=== PATIENT | female | born 1950 | race Asian ===

== ENCOUNTER 2025-04-29 16:26 | Inpatient (IN) | payer MEDICARE, OTHER ==
[~2025-04-29] VITALS: Ht 172.7 cm; Wt 66.2 kg
[2025-04-29 17:25] LABS: PLATELET COUNT (AUTO) 131 K/uL (150-450); RED BLOOD CELL COUNT(AUTO) 3.91 MIL/uL (4.0-5.2); RED CELL DISTRIBUTION WIDTH 13.6 % (11.5-15.0); WHITE BLOOD COUNT (AUTO) 6.0 K/uL (4.3-11.0)
[2025-04-29 17:34] LABS: CALCIUM, SERUM 8.9 mg/dL (8.5-10.1); CREATININE 1.1 mg/dL (0.6-1.3); SODIUM SERUM 140 mmol/L (136-145); UREA NITROGEN, BLOOD 24 mg/dL (7-18)
[2025-04-29] MEDS ORDERED: LEVE500T20 PO (17:39)
[2025-04-29] MEDS ORDERED: CALC500T13 PO (17:39)
[2025-04-29] MEDS ORDERED: NA P133E RC (17:39)
[2025-04-29] MEDS ORDERED: GUAI100S34 PO (17:39)
[2025-04-29] MEDS ORDERED: CHOL200026 PO (17:39)
[2025-04-29] MEDS ORDERED: METO25TA4 PO (17:39)
[2025-04-29] MEDS ORDERED: LOSA100T31 PO (17:39)
[2025-04-29] MEDS ORDERED: PANT40TA49 PO (17:39)
[2025-04-29] MEDS ORDERED: HYDR25TA4 PO (17:39)
[2025-04-29] MEDS ORDERED: OMEG1CAP55 PO (17:39)
[2025-04-29] MEDS ORDERED: ONDA4TAB5 PO (17:39)
[2025-04-29] MEDS ORDERED: INSU100V3 SQ (17:39)
[2025-04-29] MEDS ORDERED: DOXY100T2 PO (17:39)
[2025-04-29] MEDS ORDERED: AMLO5TAB4 PO (17:39)
[2025-04-29] MEDS ORDERED: MELA5TAB PO (17:39)
[2025-04-29] MEDS ORDERED: SIME80TA15 PO (17:39)
[2025-04-29] MEDS ORDERED: ATOR10TA PO (17:39)
[2025-04-29] MEDS ORDERED: ASPI-1169 PO (17:39)
[2025-04-29 17:41] LABS: ASPARTATE AMINOTRANSFERASE 32 U/L (15-37); TOTAL PROTEIN, SERUM 6.4 g/dL (6.4-8.2)
[2025-04-29 17:47] LABS: APPEARANCE,URINE CLEAR (CLEAR); BLOOD, URINE Small Ery/uL (NEGATIVE); LEUKOCYTE ESTERASE ,URINE Trace (NEGATIVE); UGLUCOSE Negative (NEGATIVE)
[2025-04-29 17:49] LABS: NITRITE, URINE NEGATIVE (NEGATIVE)
[2025-04-29 17:50] LABS: ADD URINE CULTURE NO; SQUAMOUS EPITHELIAL CELL,UR Few /HPF (None Seen)
[2025-04-29 18:00] LABS: AMPHETAMINE, URINE NEGATIVE (NEGATIVE); BARBITURATE, URINE NEGATIVE (NEGATIVE); BENZODIAZEPINE, URINE NEGATIVE (NEGATIVE); CANNABINOID, URINE NEGATIVE (NEGATIVE); COCCAINE, URINE NEGATIVE (NEGATIVE); OPIATE, URINE NEGATIVE (NEGATIVE)
[2025-04-29 18:13] LABS: ALCOHOL, BLOOD < 3 mg/dL (0-10)
[2025-04-30] MEDS ORDERED: ZOLPIDEM TARTRATE 5 MG TABLET PO PRN ×2 (01:30)
[2025-04-30] MEDS ORDERED: MAG HYDROX/AL HYDROX/SIMETH 30 ML UDC PO PRN (01:30)
[2025-04-30] MEDS ORDERED: ACETAMINOPHEN 325 MG TABLET PO PRN (01:30)
[2025-04-30] MEDS ORDERED: LORAZEPAM 0.5 MG TABLET PO PRN ×3 (01:30→13:30)
[2025-04-30] MEDS ORDERED: MAGNESIUM HYDROXIDE 30 ML UDC PO PRN (01:30)
[2025-04-30] MEDS: BLOOD SUGAR DIAGNOSTIC 1 EACH STRIP IN ONE (01:45)
[2025-04-30 02:21] VITALS: BP 137/95; TEMP 97.7; O2SAT 100
[2025-04-30] MEDS ORDERED: DEXTROSE 50%-WATER 50 ML DISP.SYRIN IV PRN (02:30)
[2025-04-30] MEDS ORDERED: GUAIFENESIN 300 MG/15 ML UDC PO PRN (03:00)
[2025-04-30] MEDS ORDERED: NA PHOS,M-B/NA PHOS,DI-BA 1 EA ENEMA RC PRN (03:00)
[2025-04-30] MEDS: BLOOD SUGAR DIAGNOSTIC 1 EACH STRIP IN SCH (07:03)
[2025-04-30] MEDS: PANTOPRAZOLE 40 MG TABLET.DR PO SCH (07:49)
[2025-04-30 08:00] VITALS: BP 136/89; TEMP 98.1; O2SAT 95
[2025-04-30] MEDS: CEPHALEXIN MONOHYDRATE 500 MG CAPSULE PO SCH (09:39)
[2025-04-30] MEDS: CHOLECALCIFEROL 1,000 UNIT TABLET (VIT D3) PO SCH (09:39)
[2025-04-30] MEDS: CALCIUM CARBONATE 500 MG TAB.CHEW PO PRN (09:39)
[2025-04-30] MEDS: LOSARTAN POTASSIUM 50 MG TABLET PO SCH (09:39)
[2025-04-30] MEDS: METOPROLOL SUCCINATE 25 MG TAB.SR.24H PO SCH (09:39)
[2025-04-30] MEDS: HYDROCHLOROTHIAZIDE 25 MG TABLET PO SCH (09:40)
[2025-04-30] MEDS: ASPIRIN 81 MG TAB.CHEW PO SCH (09:41)
[2025-04-30] MEDS: AMLODIPINE BESYLATE 5 MG TABLET PO SCH (09:47)
[2025-04-30] MEDS: LEVETIRACETAM (250 MG) 250 MG TABLET PO SCH (11:18)
[2025-04-30 16:00] VITALS: BP 118/69; TEMP 98.1; O2SAT 98
[2025-04-30] MEDS ORDERED: LOVAZA 1 GM PO SCH (18:00)
[2025-04-30 21:21] VITALS: BP 134/84; TEMP 98.1; O2SAT 96
[2025-04-30] MEDS: ATORVASTATIN 10 MG TABLET PO SCH (21:29)
[2025-04-30] MEDS: QUETIAPINE FUMARATE 25 MG TABLET PO SCH (21:29)
[2025-04-30] MEDS: INSULIN REGULAR, HUMAN 100 UNIT/ML 3 ML VIAL SQ PRN (21:35)
[2025-05-01 08:00] VITALS: BP 113/88; TEMP 98.6; O2SAT 98
[2025-05-01 16:00] VITALS: BP 115/68; TEMP 97.5; O2SAT 97
[2025-05-02 08:00] VITALS: BP 142/74; TEMP 98.6; O2SAT 98
[2025-05-02] MEDS: VITAMINS A AND D 56.7 GM TUBE TP SCH (09:04)
[2025-05-02 16:00] VITALS: BP 117/68; TEMP 97.5; O2SAT 99
[2025-05-02 19:44] VITALS: BP 122/58; TEMP 97.5; O2SAT 98
[2025-05-03 08:00] VITALS: BP 132/72; TEMP 98.7; O2SAT 98
[2025-05-03 16:00] VITALS: BP 100/70; TEMP 97.7; O2SAT 100
[2025-05-03] MEDS: SIMETHICONE 80 MG TAB.CHEW PO PRN (16:59)
[2025-05-03 19:52] VITALS: BP 108/61; TEMP 97.8; O2SAT 100
[2025-05-04 08:00] VITALS: BP 139/100; TEMP 98.7; O2SAT 99
[2025-05-04 16:00] VITALS: BP 99/72; TEMP 97.9; O2SAT 99
[2025-05-04 19:51] VITALS: BP 105/63; TEMP 97.7; O2SAT 99
[2025-05-05 08:00] VITALS: BP 116/61; TEMP 97.9; O2SAT 95
[2025-05-05] MEDS ORDERED: VENLAFAXINE XR 75 MG CAP.SR.24H PO SCH (10:30)
[2025-05-05] MEDS: VENLAFAXINE XR 37.5 MG CAP.SR.24H PO SCH (12:39)
[2025-05-05 16:00] VITALS: BP 105/75; TEMP 97.9; O2SAT 100
[2025-05-05 20:00] VITALS: BP 112/77; TEMP 98.1; O2SAT 100
[2025-05-06 08:00] VITALS: BP 118/78; TEMP 97.5; O2SAT 98
[2025-05-06] MEDS: ONDANSETRON 4 MG TAB.RAPDIS PO PRN (17:15)
[2025-05-06 18:18] LABS: PLATELET COUNT (AUTO) 140 K/uL (150-450); RED BLOOD CELL COUNT(AUTO) 4.66 MIL/uL (4.0-5.2); RED CELL DISTRIBUTION WIDTH 13.7 % (11.5-15.0); WHITE BLOOD COUNT (AUTO) 4.9 K/uL (4.3-11.0)
[2025-05-06 18:24] LABS: CALCIUM, SERUM 9.4 mg/dL (8.5-10.1); CREATININE 1.4 mg/dL (0.6-1.3); SODIUM SERUM 140.0 mmol/L (136-145); UREA NITROGEN, BLOOD 32.0 mg/dL (7-18)
[2025-05-06 20:48] VITALS: BP 130/83; TEMP 98.1; O2SAT 97
[2025-05-07 08:00] VITALS: BP 117/74; TEMP 98.7; O2SAT 99
[2025-05-07 08:12] LABS: CALCIUM, SERUM 9.3 mg/dL (8.5-10.1); CREATININE 1.6 mg/dL (0.6-1.3); SODIUM SERUM 142.0 mmol/L (136-145); UREA NITROGEN, BLOOD 31.0 mg/dL (7-18)
[2025-05-07 16:00] VITALS: BP 100/51; TEMP 98.7; O2SAT 99
[2025-05-07 20:00] VITALS: BP 122/74; TEMP 98.3; O2SAT 98
[2025-05-08 08:00] VITALS: BP 106/75; TEMP 97.9; O2SAT 96
[2025-05-08 08:10] VITALS: BP 106/75; TEMP 97.9; O2SAT 96
[2025-05-08 16:00] VITALS: BP 112/75; TEMP 97.7; O2SAT 100
[2025-05-08 20:12] VITALS: BP 119/77; TEMP 97.9; O2SAT 98
[2025-05-09 08:00] VITALS: BP 109/69; TEMP 97.6; O2SAT 97
[2025-05-09 16:00] VITALS: BP 112/77; TEMP 97.9; O2SAT 99
[2025-05-09] MEDS: GLUCERNA SHAKE 237 ML CAN PO SCH (17:00)
[2025-05-09] MEDS: MEGESTROL ACETATE 40 MG TABLET PO SCH (18:33)
[2025-05-09 20:00] VITALS: BP 106/70; TEMP 97.9; O2SAT 100
[2025-05-09] MEDS: QUETIAPINE FUMARATE 25 MG TABLET PO SCH (21:18)
[2025-05-10 07:36] LABS: PLATELET COUNT (AUTO) 136 K/uL (150-450); RED BLOOD CELL COUNT(AUTO) 4.26 MIL/uL (4.0-5.2); RED CELL DISTRIBUTION WIDTH 13.3 % (11.5-15.0); WHITE BLOOD COUNT (AUTO) 3.8 K/uL (4.3-11.0)
[2025-05-10 08:00] LABS: CREATINE KINASE, TOTAL 20.0 U/L (26-192)
[2025-05-10 08:14] LABS: ASPARTATE AMINOTRANSFERASE 20.0 U/L (15-37); CALCIUM, SERUM 9.3 mg/dL (8.5-10.1); CREATININE 1.5 mg/dL (0.6-1.3); PHOSPHORUS 3.7 mg/dL (2.5-4.9); SODIUM SERUM 143.0 mmol/L (136-145); TOTAL PROTEIN, SERUM 6.5 g/dL (6.4-8.2); UREA NITROGEN, BLOOD 33.0 mg/dL (7-18)
[2025-05-10 08:22] VITALS: BP 108/68; TEMP 97.8; O2SAT 100
[2025-05-10] MEDS: LEVETIRACETAM (250 MG) 250 MG TABLET PO SCH (12:00)
[2025-05-10 16:08] VITALS: BP 93/70; TEMP 97.8; O2SAT 96
[2025-05-10 21:05] VITALS: BP 105/76; TEMP 97.9; O2SAT 98
[2025-05-10] MEDS: MIRTAZAPINE 15 MG TABLET PO SCH (21:16)
[2025-05-11 06:13] LABS: PTH, INTACT 37 pg/mL (15-65)
[2025-05-11 08:00] VITALS: BP 130/67; TEMP 98.1; O2SAT 97
[2025-05-11 16:00] VITALS: BP 115/74; TEMP 97.8; O2SAT 99
[2025-05-11 16:31] LABS: CALCIUM, SERUM 9.6 mg/dL (8.5-10.1); CREATININE 1.4 mg/dL (0.6-1.3); SODIUM SERUM 137.0 mmol/L (136-145); UREA NITROGEN, BLOOD 35.0 mg/dL (7-18)
[2025-05-11] MEDS: IV D5/ 0.9% NACL 1,000 ML IV PRN (17:46)
[2025-05-11 19:48] VITALS: BP 115/93; TEMP 98.1; O2SAT 99
[2025-05-12 08:00] VITALS: BP 121/82; TEMP 97.8; O2SAT 98
[2025-05-12 16:11] VITALS: BP 131/61; TEMP 97.8; O2SAT 95
[2025-05-12] MEDS ORDERED: MAGN400O6 PO (18:27)
[2025-05-12] MEDS ORDERED: LEVE500T20 PO (18:27)
[2025-05-12] MEDS ORDERED: MAG30ORA PO (18:27)
[2025-05-12] MEDS ORDERED: MIRT7.5T10 PO (18:27)
[2025-05-12] MEDS ORDERED: ACET-868 PO (18:27)
[2025-05-12] MEDS ORDERED: NUT.237L45 PO (18:27)
[2025-05-12] MEDS ORDERED: PETR113O TP (18:27)
[2025-05-12] MEDS ORDERED: MEGE400O6 PO (18:27)
== END 2025-05-12 16:32 | DRG 885 ==
LOC: ER 16:38 → GPS 23:52
PROVIDERS: ADMIT Psychiatry & Neurology Psychiatry; ATTEND Nurse Practitioner Acute Care
DX: F39 Unspecified mood [affective] disorder (principal); N18.9 Chronic kidney disease, unspecified; N17.0 Acute kidney failure with tubular necrosis; F03.92 Unspecified dementia, unspecified severity, with psychotic disturbance; F03.93 Unspecified dementia, unspecified severity, with mood disturbance; F29 Unspecified psychosis not due to a substance or known physiological condition; Z20.822 Contact with and (suspected) exposure to COVID-19; I12.9 Hypertensive chronic kidney disease with stage 1 through stage 4 chronic kidney disease, or unspecified chronic kidney disease; L85.3 Xerosis cutis; Z87.11 Personal history of peptic ulcer disease; Z87.440 Personal history of urinary (tract) infections; E11.22 Type 2 diabetes mellitus with diabetic chronic kidney disease; Z79.4 Long term (current) use of insulin; Z79.82 Long term (current) use of aspirin; Z79.899 Other long term (current) drug therapy; G40.909 Epilepsy, unspecified, not intractable, without status epilepticus; R62.7 Adult failure to thrive; E78.5 Hyperlipidemia, unspecified; Z73.6 Limitation of activities due to disability; E86.0 Dehydration
CPT/HCPCS: 36415; 71045-TC; 76770-TC; 80048-TC; 80053-TC; 80076-TC; 81001; 82550-TC; 82962-TC; 83735-TC; 83970; 84100-TC; 84155; 84165; 84484-TC; 85025-TC; 87081-TC; 97110-TC; 97116-TC; 97530-TC; A4223; G0480; J1815; J7030; J7042; J7070; Q0162

== ENCOUNTER 2025-05-12 17:17 | Inpatient (IN) | payer MEDICARE, OTHER ==
[~2025-05-12] VITALS: Ht 162.6 cm; Wt 70.8 kg
[~2025-05-12 17:17] MED LIST: AMLO5TAB4 PO; ASPI-1169 PO; ATOR10TA PO; CALC500T13 PO; CHOL200026 PO; DOXY100T2 PO; GUAI100S34 PO; HYDR25TA4 PO; INSU100V3 SQ; LEVE500T20 PO; LOSA100T31 PO; MELA5TAB PO; METO25TA4 PO; NA P133E RC; OMEG1CAP55 PO; ONDA4TAB5 PO; PANT40TA49 PO; SIME80TA15 PO
[2025-05-12] MEDS ORDERED: LEVE500T20 PO (18:27)
[2025-05-12] MEDS ORDERED: MEGE400O6 PO (18:27)
[2025-05-12] MEDS ORDERED: NUT.237L45 PO (18:27)
[2025-05-12] MEDS ORDERED: PETR113O TP (18:27)
[2025-05-12] MEDS ORDERED: ACET-868 PO (18:27)
[2025-05-12] MEDS ORDERED: MAGN400O6 PO (18:27)
[2025-05-12] MEDS ORDERED: MAG30ORA PO (18:27)
[2025-05-12] MEDS ORDERED: MIRT7.5T10 PO (18:27)
[2025-05-12 20:00] VITALS: BP 129/82; TEMP 97.5; O2SAT 96
[2025-05-12] MEDS ORDERED: DEXTROSE 50%-WATER 50 ML DISP.SYRIN IV PRN (23:00)
[2025-05-12] MEDS ORDERED: Z GUARD REMEDY 4 OZ OINT TP PRN (23:00)
[2025-05-12] MEDS ORDERED: ACETAMINOPHEN 325 MG TABLET PO PRN (23:00)
[2025-05-12] MEDS ORDERED: BISACODYL SUPP (10 MG) 10 MG/SUPP.RECT SUPP.RECT RC PRN (23:00)
[2025-05-12] MEDS ORDERED: ONDANSETRON HCL/PF 4 MG/2 ML VIAL IVP PRN (23:00)
[2025-05-12] MEDS: IV NS 0.9% 1,000 ML IV PRN (23:42)
[2025-05-13] MEDS ORDERED: GUAIFENESIN 300 MG/15 ML UDC PO PRN (02:00)
[2025-05-13] MEDS ORDERED: SIMETHICONE 80 MG TAB.CHEW PO PRN (02:00)
[2025-05-13] MEDS ORDERED: CALCIUM CARBONATE 500 MG TAB.CHEW PO PRN (02:00)
[2025-05-13] MEDS: BLOOD SUGAR DIAGNOSTIC 1 EACH STRIP IN SCH (06:40)
[2025-05-13] MEDS: INSULIN REGULAR, HUMAN 100 UNIT/ML 3 ML VIAL SQ PRN (06:40)
[2025-05-13] MEDS: PANTOPRAZOLE 40 MG TABLET.DR PO SCH (07:30)
[2025-05-13 08:00] VITALS: BP 140/82; TEMP 97.9; O2SAT 93
[2025-05-13] MEDS: GLUCERNA SHAKE 237 ML CAN PO SCH (08:00)
[2025-05-13] MEDS: AMLODIPINE BESYLATE 5 MG TABLET PO SCH (08:21)
[2025-05-13] MEDS: CHOLECALCIFEROL 1,000 UNIT TABLET (VIT D3) PO SCH (08:21)
[2025-05-13] MEDS: MEGESTROL ACETATE 40 MG TABLET PO SCH (08:21)
[2025-05-13] MEDS: ASPIRIN 81 MG TAB.CHEW PO SCH (08:21)
[2025-05-13] MEDS: LEVETIRACETAM (250 MG) 250 MG TABLET PO SCH (08:21)
[2025-05-13] MEDS: VITAMINS A AND D 56.7 GM TUBE TP SCH (10:03)
[2025-05-13 12:59] LABS: PLATELET COUNT (AUTO) 124 K/uL (150-450); RED BLOOD CELL COUNT(AUTO) 4.26 MIL/uL (4.0-5.2); RED CELL DISTRIBUTION WIDTH 13.4 % (11.5-15.0); WHITE BLOOD COUNT (AUTO) 3.8 K/uL (4.3-11.0)
[2025-05-13 13:14] LABS: ASPARTATE AMINOTRANSFERASE 20.0 U/L (15-37); CALCIUM, SERUM 8.7 mg/dL (8.5-10.1); CREATININE 1.2 mg/dL (0.6-1.3); PHOSPHORUS 3.0 mg/dL (2.5-4.9); SODIUM SERUM 143.0 mmol/L (136-145); TOTAL PROTEIN, SERUM 6.1 g/dL (6.4-8.2); UREA NITROGEN, BLOOD 23.0 mg/dL (7-18)
[2025-05-13 16:00] VITALS: BP 151/82; TEMP 97.9; O2SAT 100
[2025-05-13] MEDS: ENSURE ENLIVE 237 ML LIQUID (VANILLA) PO SCH (17:00)
[2025-05-13] MEDS: IV D5/ 0.9% NACL 1,000 ML IV PRN (19:28)
[2025-05-13 19:38] VITALS: BP 151/82; TEMP 97.9; O2SAT 100
[2025-05-13 20:00] VITALS: BP 106/84; TEMP 97.5; O2SAT 97
[2025-05-13 20:05] VITALS: BP 106/84; TEMP 97.5; O2SAT 97
[2025-05-13] MEDS: OLANZAPINE ZYDIS 5 MG TAB.RAPDIS PO SCH (22:00)
[2025-05-13] MEDS: ATORVASTATIN 10 MG TABLET PO SCH (22:00)
[2025-05-14 06:52] LABS: PLATELET COUNT (AUTO) 127 K/uL (150-450); RED BLOOD CELL COUNT(AUTO) 4.25 MIL/uL (4.0-5.2); RED CELL DISTRIBUTION WIDTH 13.4 % (11.5-15.0); WHITE BLOOD COUNT (AUTO) 4.3 K/uL (4.3-11.0)
[2025-05-14 07:12] LABS: CALCIUM, SERUM 8.9 mg/dL (8.5-10.1); CREATININE 1.1 mg/dL (0.6-1.3); PHOSPHORUS 2.8 mg/dL (2.5-4.9); SODIUM SERUM 145.0 mmol/L (136-145); UREA NITROGEN, BLOOD 19.0 mg/dL (7-18)
[2025-05-14 08:00] VITALS: BP 138/81; TEMP 98.4; O2SAT 100
[2025-05-14] MEDS: LEVETIRACETAM (500MG) 500 MG in IV NS 0.9% 100 ML IV SCH (14:40)
[2025-05-14 16:00] VITALS: BP 132/80; TEMP 97.9; O2SAT 100; O2SAT 97
[2025-05-14 20:00] VITALS: BP 126/74; TEMP 97.9; O2SAT 99
[2025-05-15 08:27] VITALS: BP 138/81; TEMP 97.5; O2SAT 96
[2025-05-15 16:22] VITALS: BP 98/64; TEMP 98.5; O2SAT 98
[2025-05-15 20:54] VITALS: BP 157/81; TEMP 97.5; O2SAT 100
[2025-05-15 21:15] LABS: PLATELET COUNT (AUTO) 114 K/uL (150-450); RED BLOOD CELL COUNT(AUTO) 3.92 MIL/uL (4.0-5.2); RED CELL DISTRIBUTION WIDTH 13.5 % (11.5-15.0); WHITE BLOOD COUNT (AUTO) 4.3 K/uL (4.3-11.0)
[2025-05-15 21:25] LABS: CALCIUM, SERUM 8.6 mg/dL (8.5-10.1); CREATININE 1.1 mg/dL (0.6-1.3); SODIUM SERUM 145.0 mmol/L (136-145); UREA NITROGEN, BLOOD 12.0 mg/dL (7-18)
[2025-05-16 08:19] VITALS: BP 128/68; TEMP 98.1; O2SAT 98
[2025-05-16] MEDS: OLANZAPINE 10 MG VIAL IM SCH (09:49)
[2025-05-16 16:09] LABS: PLATELET COUNT (AUTO) 110 K/uL (150-450); RED BLOOD CELL COUNT(AUTO) 3.84 MIL/uL (4.0-5.2); RED CELL DISTRIBUTION WIDTH 13.5 % (11.5-15.0); WHITE BLOOD COUNT (AUTO) 3.5 K/uL (4.3-11.0)
[2025-05-16 16:15] VITALS: BP 162/83; TEMP 97.9; O2SAT 98
[2025-05-16 16:17] LABS: CALCIUM, SERUM 8.3 mg/dL (8.5-10.1); CREATININE 1.1 mg/dL (0.6-1.3); SODIUM SERUM 143.0 mmol/L (136-145); UREA NITROGEN, BLOOD 8.0 mg/dL (7-18)
[2025-05-16] MEDS: POTASSIUM CHLORIDE 20 MEQ TAB.PRT.SR PO SCH (19:32)
[2025-05-16] MEDS: OLANZAPINE 10 MG VIAL IM PRN (19:49)
[2025-05-17 08:00] VITALS: BP 150/88; TEMP 98.2; O2SAT 97
[2025-05-17 10:31] LABS: PLATELET COUNT (AUTO) 107 K/uL (150-450); RED BLOOD CELL COUNT(AUTO) 3.63 MIL/uL (4.0-5.2); RED CELL DISTRIBUTION WIDTH 13.8 % (11.5-15.0); WHITE BLOOD COUNT (AUTO) 3.5 K/uL (4.3-11.0)
[2025-05-17 10:46] LABS: CALCIUM, SERUM 8.4 mg/dL (8.5-10.1); CREATININE 1.1 mg/dL (0.6-1.3); SODIUM SERUM 147.0 mmol/L (136-145); UREA NITROGEN, BLOOD 11.0 mg/dL (7-18)
[2025-05-17 16:00] VITALS: BP 120/97; TEMP 97.8; O2SAT 96
== END 2025-05-17 18:54 | DRG 640 ==
LOC: MED 17:17
PROVIDERS: ADMIT Registered Nurse Psychiatric/Mental Health; ATTEND Nurse Practitioner Family
DX: E86.0 Dehydration (principal); N17.0 Acute kidney failure with tubular necrosis; F03.93 Unspecified dementia, unspecified severity, with mood disturbance; F03.92 Unspecified dementia, unspecified severity, with psychotic disturbance; R62.7 Adult failure to thrive; G40.909 Epilepsy, unspecified, not intractable, without status epilepticus; E83.41 Hypermagnesemia; E11.22 Type 2 diabetes mellitus with diabetic chronic kidney disease; E78.5 Hyperlipidemia, unspecified; I12.9 Hypertensive chronic kidney disease with stage 1 through stage 4 chronic kidney disease, or unspecified chronic kidney disease; T50.2X5A Adverse effect of carbonic-anhydrase inhibitors, benzothiadiazides and other diuretics, initial encounter; T46.5X5A Adverse effect of other antihypertensive drugs, initial encounter; Y92.9 Unspecified place or not applicable; N18.2 Chronic kidney disease, stage 2 (mild); Z87.11 Personal history of peptic ulcer disease; Z91.199 Patient's noncompliance with other medical treatment and regimen due to unspecified reason; F29 Unspecified psychosis not due to a substance or known physiological condition; F39 Unspecified mood [affective] disorder
CPT/HCPCS: 36415; 80048-TC; 80053-TC; 82962-TC; 83735-TC; 84100-TC; 85025-TC; 97110-TC; 97116-TC; 97530-TC; A4223; G0378; J1815; J1953; J3490; J7030; J7042; J7050